=== PATIENT | female | born 1985 | race Caucasian/White ===

== ENCOUNTER 2018-10-13 17:17 | Outpatient (CLI) | payer OTHER ==
--- NOTE | 2018-10-13 18:35 | RAD ---
SACRUM AND COCCYX: 10/13/18 Total of four views. HISTORY: Back pain. Left hip and buttock pain. SI joints are symmetric. Sacrum and coccyx appear unremarkable. IUD overlies the mid pelvis. IMPRESSION: No acute findings. POS: ROWENA
--- NOTE | 2018-10-13 18:41 | RAD ---
EXAM: LUMBAR SPINE THREE VIEWS: 10/13/18 HISTORY: Chronic low back pain, left hip and buttocks pain, M54.5. FINDINGS: The disc spaces are adequately preserved. Postop cholecystectomy surgical clips are noted. No fractur e, dislocation, or malalignment. IMPRESSION: Unremarkable lumbar spine. No acute process. POS: RRE
== END 2018-10-13 17:18 | disposition home or self-care (01) ==
LOC: SCSRAD 17:17
PROVIDERS: ATTEND Nurse Practitioner Family
DX: M54.5 Low back pain (principal)
CPT/HCPCS: 72100; 72220